=== PATIENT | male | born 1975 | race Caucasian/White ===

== ENCOUNTER 2018-03-07 00:28 | Emergency (ER) | payer BC ==
[2018-03-07] MEDS ORDERED: NS 0.9% 1000 ML* 1,000 ML IV ONE ×2 (00:36→02:06)
[2018-03-07] MEDS ORDERED: Ketorolac INJ* 30 MG/ML 1 ML VIAL IV PUSH ONE (00:36)
[2018-03-07] MEDS ORDERED: Ondansetron INJ* 2 MG/ML VIAL IV ONE (00:36)
--- NOTE | 2018-03-07 00:44 | ED ---
Back Pain - HPI Summary HPI Summary: Patient complains of right sided flank pain sudden onset starting at 2300 today with associated nausea/vomiting. Pain is sharp, constant, 10/10. Denies history of kidney stones, trauma, fever, cough, sore throat, CP, SOB, abdominal pain, change in urine, change in BM. Medical history is also colitis. - History of Current Complaint Chief Complaint: EDFlankPain Stated Complaint: BACK PAIN Time Seen by Provider: 03/07/18 00:35 Hx Obtained From: Patient, Family/Jewellery Designer Onset/Duration: Sudden Onset Onset/Duration: Started Hours Ago Timing: Constant Back Pain Location: Is Discrete @ Severity Initially: Severe Severity Currently: Severe Pain Intensity: 10 Pain Scale Used: 0-10 Numeric Character: Sharp Aggravating Symptom(s): Nothing Alleviating Symptom(s): Nothing Associated Signs And Symptoms: Positive: Flank Pain - Allergies/Home Medications Allergies/Adverse Reactions: Allergies Allergy/AdvReac Type Severity Reaction Status Date / Time No Known Allergies Allergy Verified 07/16/13 07:56 PMH/Surg Hx/FS Hx/Imm Hx Endocrine/Hematology History: Denies: Hx Anticoagulant Therapy Cardiovascular History: Denies: Hx Cardiac Arrest History: Denies: Hx Dialysis Neurological History: Denies: Hx CVA Infectious Disease History: No Infectious Disease History: Denies: Traveled Outside the [place] in Last 30 Days - Social History Alcohol Use: Occasionally Substance Use Type: Reports: None Hx Tobacco Use: No Review of Systems Constitutional: Negative Eyes: Negative ENT: Negative Cardiovascular: Negative Respiratory: Negative Positive: Vomiting, Nausea Positive: flank pain Musculoskeletal: Negative Skin: Negative Neurological: Negative Psychological: Normal All Other Systems Reviewed And Are Negative: Yes Physical Exam Triage Information Reviewed: Yes Vital Signs On Initial Exam: Initial Vitals Temp Pulse Resp BP Pulse Ox 97.7 F 93 22 145/82 100 03/07/18 00:29 03/07/18 00:29 03/07/18 00:29 03/07/18 00:29 03/07/18 00:29 Vital Signs Reviewed: Yes Appearance: Positive: Well-Appearing Skin: Positive: Warm Head/Face: Positive: Normal Head/Face Inspection Eyes: Positive: Normal Neck: Positive: Supple Respiratory/Lung Sounds: Positive: Clear to Auscultation Cardiovascular: Positive: Normal Abdomen Description: Positive: Nontender Musculoskeletal: Positive: Normal Neurological: Positive: Normal Psychiatric: Positive: Normal AVPU Assessment: Alert - [place] Coma Scale Best Eye Response: 4 - Spontaneous Best Motor Response: 6 - Obeys Commands Best Verbal Response: 5 - Oriented Coma Scale Total: 15 Diagnostics - Vital Signs Vital Signs Temp Pulse Resp BP Pulse Ox 03/07/18 00:29 97.7 F 93 22 145/82 100 - Laboratory Result Diagrams: 03/07/18 00:43 03/07/18 00:43 Lab Statement: Any lab studies that have been ordered have been reviewed, and results considered in the medical decision making process. Back Pain Course/Dx - Course Course Of Treatment: Patient complains of right sided flank pain sudden onset starting at 2300 today with associated nausea/vomiting. Pain is sharp, constant , 10/10. Denies history of kidney stones, trauma, fever, cough, sore throat, CP , SOB, abdominal pain, change in urine, change in BM. Medical history is ulcerative colitis. Abdomen soft nontender in all quadrants. No CVA tenderness. No pain with palpation of flank or back. Vital signs within normal limits. Labs unremarkable. CT positive for 3 mm partially obstructing stone. Rx for Toradol, hydrocodone. Sent home with strainer. - Diagnoses Provider Diagnoses: Renal calculus, right Discharge - Sign-Out/Discharge Documenting (check all that apply): Patient Departure - Discharge Plan Condition: Stable Disposition: HOME Prescriptions: HYDROcodone/ACETAMIN 5-325 MG* [[place] 5-325 TAB*] 1 tab PO Q8H PRN 2 Days #8 tab MDD 3-4 tabs PRN Reason: Pain Ketorolac TAB * [Toradol TAB *] 10 mg PO Q6H 3 Days #12 tab Patient Education Materials: Kidney Stones (ED), How to Strain Your Urine (ED) Referrals: Johnnie Hernandez NP [Nurse Practitioner] - Klever Hayes MD [Medical Doctor] - Additional Instructions: Strain urine at home to catch stone. Take pain medication as prescribed. If symptoms persist more than a few days follow-up with urology Dr. Hayes. Return to the ED for any new or worsening symptoms - Billing Disposition and Condition Condition: STABLE Disposition: Home
[2018-03-07 00:49] LABS: ABS Basophils 0.1 10^3/ul (0-0.2); ABS Eosinophils 0.1 10^3/ul (0-0.6); ABS Lymphocytes 2.3 10^3/ul (1.0-4.8); ABS Monocytes 0.8 10^3/ul (0-0.8); ABS Neutrophils 6.9 10^3/ul (1.5-7.7); ABS Nucleated RBC 0 10^3/ul; Eosinophil % 0.5 % (0-6); Hematocrit 41 % (42-52); Hemoglobin 14.2 g/dl (14.0-18.0); Mean Corpuscular HGB Conc 35 g/dl (31-36); Mean Corpuscular Hemoglobin 31 pg (27-31); Mean Corpuscular Volume 91 fL (80-94); Mean Platelet Volume 8.5 um3 (7.4-10.4); Nucleated Red Blood Cells % 0; Platelet Count 197 10^3/ul (150-450); Red Blood Count 4.54 10^6/ul (4.00-5.40); Red Cell Distribution Width 13 % (10.5-15); White Blood Count 10.2 10^3/ul (3.5-10.8)
[2018-03-07] MEDS ORDERED: Morphine VIAL* 10 MG/ML 1 ML VIAL IV ONE (01:35)
[2018-03-07] MEDS ORDERED: Morphine INJ* 4 MG/ML 1 ML SYRINGE (NEW SYRINGE VERSION) ONE (01:41)
--- NOTE | 2018-03-07 01:51 | RAD ---
EXAM: CT Abdomen and Pelvis Without Intravenous Contrast EXAM DATE/TIME: 03/07/2018 1:11 AM CLINICAL HISTORY: 42 years old, male; Pain; Abdominal pain; Flank; Right; Additional info: R flank pain TECHNIQUE: Axial computed tomography images of the abdomen and pelvis without intravenous contrast. All CT scans at this facility use at least one of these dose optimization techniques: automated exposure control; mA and/or kV adjustment per patient size (includes targeted exams where dose is matched to clinical indication); or iterative reconstruction. Coronal and sagittal reformatted images were created and reviewed. COMPARISON: No relevant prior studies available. FINDINGS: Lower thorax: No acute findings. ABDOMEN: Liver: Normal. No mass. Gallbladder and bile ducts: Normal. No calcified stones. No ductal dilation. Pancreas: Normal. No ductal dilation. Spleen: Normal. No splenomegaly. Adrenals: Normal. No mass. Kidneys and ureters: Mild right pelvicaliureterectasis with associated perinephric and periureteral stranding. Ureterectasis terminates at a 0.3 cm calculus distal third right ureter (series 601, image 54). Additional punctate nonobstructing calculi throughout the right kidney. No left pelvocaliectasis or renal calculi. Stomach and bowel: Incompletely distended grossly normal stomach. Normal caliber small bowel. No colonic masses or segmental wall thickening. Appendix: Normal caliber appendix without wall thickening or adjacent inflammation. PELVIS: Bladder: Thin-walled bladder with no focal nodularity, perivesicular stranding, or calcifications. Reproductive: Normal sized prostate. Normal seminal vesicles. ABDOMEN and PELVIS: Intraperitoneal space: Normal. No free air. No significant fluid collection. Bones/joints: No fractures. No suspicious bone lesions. Soft tissues: Normal. No hernias. Vasculature: Persistent left IVC. Lymph nodes: Normal. No enlarged lymph nodes. IMPRESSION: 1. Mildly obstructing 3 mm calculus distal third right ureter. 2. Nonobstructing right renal calculi. To contact [facility] with a general question: [facility] - [phone] For direct physician to physician contact: Physician Hotline - [phone] [facility] ([facility] Facility ID #[id number])
[2018-03-07] MEDS ORDERED: oxyCODONE TAB* 5 MG TAB PO ONE (02:14)
[2018-03-07 03:40] VITALS: BP 123/77
[2018-03-07 04:01] LABS: Urine Appearance Clear; Urine Blood 1+ (Negative); Urine Color Yellow; Urine Ketones 1+ (Negative); Urine Protein 1+(30 mg/dL) (Negative); Urine Red Blood Cell 3+(>10/hpf) (Absent); Urine Specific Gravity 1.033 (1.010-1.030); Urine Urobilinogen Negative (Negative); Urine White Blood Cell Absent (Absent)
== END 2018-03-07 03:45 | disposition home or self-care (01) ==
LOC: ED 00:28
DX: N20.2 Calculus of kidney with calculus of ureter (principal); R11.2 Nausea with vomiting, unspecified
CPT/HCPCS: 36415; 74176; 80053; 81003; 81015; 83605; 83690; 85025; 86140; 96374; 96375; 99284; A9270-GY; J1885; J2270; J2405